=== PATIENT | male | born 1945 | race Caucasian/White ===

== ENCOUNTER 2017-03-24 08:40 | Day surgery (SDC) | payer MEDICARE ==
[2017-03-22 16:20] VITALS: BMI 29.4
[~2017-03-24 08:40] MED LIST: LACTATED RINGERS 1,000 ML IV SCH
[2017-03-24 09:09] VITALS: RESP 18; TEMP 98.5
[2017-03-24] MEDS ORDERED: LIDOCAINE 1% 20 ML VIAL (10MG/ML) FOR IV START INTRADERMA ONE (09:15)
[2017-03-24] MEDS ORDERED: ATROPINE SULFATE 0.4 MG/ML 1 ML VIAL ONE (09:27)
[2017-03-24] MEDS ORDERED: PROPOFOL 10 MG/ML 20 ML VIAL IV ONE (09:27)
[2017-03-24] MEDS ORDERED: GLYCOPYRROLATE 0.2 MG/ML 2 ML VIAL ONE (09:27)
--- NOTE | 2017-03-24 09:28 | P.GSHP ---
History of Present Illness H&P Date: 03/24/17 Chief Complaint: Screening colonoscopy This a 71-year-old male referred from Dr. Perez. Patient presents today for screening colonoscopy. His last colonoscopy was over 10 years ago. He denies a significant GI complaints. Past Medical History Additional Past Medical History / Comment(s): past hx. ulcer, colon polyps History of Any Multi-Drug Resistant Organisms: None Reported Past Surgical History: Orthopedic Surgery Additional Past Surgical History / Comment(s): colonoscopy,EGD, bjorn. arthroscopic shoulder surg. Past Anesthesia/Blood Transfusion Reactions: No Reported Reaction Smoking Status: Former smoker - Past Family History Mother Family Medical History: No Reported History Medications and Allergies Home Medications Medication Instructions Recorded Confirmed Type Acetaminophen Tab [Tylenol Tab] 650 mg PO Q6H PRN 03/22/17 03/24/17 History Potassium Gluconate 1 tab PO DAILY PRN 03/24/17 03/24/17 History Allergies Allergy/AdvReac Type Severity Reaction Status Date / Time No Known Allergies Allergy Verified 03/24/17 09:01 Surgical - Exam Vital Signs Temp Pulse Resp BP Pulse Ox 98.5 F 71 18 146/75 96 03/24/17 09:00 03/24/17 09:00 03/24/17 09:00 03/24/17 09:00 03/24/17 09:00 - General well developed, no distress - Eyes PERRL - ENT normal pinna - Neck no masses - Respiratory normal expansion - Cardiovascular Rhythm: regular - Abdomen Abdomen: soft, non tender Assessment and Plan Plan: We will perform screening colonoscopy.
--- NOTE | 2017-03-24 09:43 | P.OP ---
Date of Procedure: 03/24/17 Preoperative Diagnosis: Screening colonoscopy Postoperative Diagnosis: Left colon polyp Diverticulosis Mild internal hemorrhoids Procedure(s) Performed: Colonoscopy Anesthesia: MAC Surgeon: Dashawn Cancino Pathology: other (Left colon polyp) Condition: stable Disposition: PACU Description of Procedure: Patient's placed on the endoscopy table lateral position. He received IV sedation. Digital rectal exam was performed which revealed internal hemorrhoids. The prostate was symmetric without nodules. The flexible colonoscope was then placed patient anus passed throughout the entire colon. The ileocecal valve sutures. The cecum, ascending and transverse colon appeared normal. The descending colon there was a small polyp was removed the forcep. The sigmoid colon was examined and there was; there is mild diverticular changes. The scope was then brought back the rectum and the internal hemorrhoids are noted. Scope was withdrawn for patient.
[2017-03-24 10:05] VITALS: BP 127/75; PULSE 73
== END 2017-03-24 10:56 | disposition home or self-care (01) ==
LOC: ORWHC2ENDO 08:40
PROVIDERS: ATTEND Surgery
DX: Z12.11 Encounter for screening for malignant neoplasm of colon (principal); K63.5 Polyp of colon; K57.30 Diverticulosis of large intestine without perforation or abscess without bleeding; K64.8 Other hemorrhoids; Z87.891 Personal history of nicotine dependence; Z86.010 Personal history of colon polyps
CPT/HCPCS: 45380; 88305; J0461; J2704

== ENCOUNTER → 2018-08-21 | Outpatient (CLI) | payer MEDICARE ==
--- NOTE | 2018-08-21 13:28 | XR ---
EXAMINATION TYPE: XR chest 2V DATE OF EXAM: 08/21/2018 COMPARISON: Prior chest x-ray 06/22/2013 HISTORY: Shortness of breath for months TECHNIQUE: Frontal and lateral views of the chest are obtained. FINDINGS: There is no focal air space opacity, pleural effusion, or pneumothorax seen. The cardiac silhouette size is within normal limits. The aorta is dense. The osseous structures are intact. IMPRESSION: Stable chest x-ray. No acute cardiopulmonary disease.
== END | disposition home or self-care (01) ==
LOC: RADXRMAIN 12:06
PROVIDERS: ATTEND Family Medicine
DX: R06.02 Shortness of breath (principal)
CPT/HCPCS: 71046

== ENCOUNTER → 2018-09-24 | Outpatient (CLI) | payer MEDICARE ==
[2018-09-24 17:20] LABS: Anisocytosis Slight; HCT 27.4 % (39.0-53.0); HGB 7.6 gm/dL (13.0-17.5); Hypochromasia Marked; MCH 19.6 pg (25.0-35.0); MCHC 27.7 g/dL (31.0-37.0); MCV 70.8 fL (80.0-100.0); Mean Platelet Volume 9.5; Microcytosis Moderate; Platelet Count 272 k/uL (150-450); Poikilocytosis Slight; RBC 3.86 m/uL (4.30-5.90); RDW 16.5 % (11.5-15.5); WBC 6.4 k/uL (3.8-10.6)
[2018-09-24 17:27] LABS: Anion Gap 8 mmol/L; Blood Urea Nitrogen 16 mg/dL (9-20); Carbon Dioxide 23 mmol/L (22-30); Chloride 107 mmol/L (98-107); Potassium 4.6 mmol/L (3.5-5.1); Sodium 138 mmol/L (137-145)
== END ==
LOC: LABPAT 16:08
PROVIDERS: ATTEND Internal Medicine Cardiovascular Disease
DX: Z01.812 Encounter for preprocedural laboratory examination (principal); I34.0 Nonrheumatic mitral (valve) insufficiency
CPT/HCPCS: 36415; 80051; 82565; 84520; 85027

== ENCOUNTER 2018-10-02 12:33 | Emergency (ER) | payer MEDICARE ==
[2018-10-02 12:57] VITALS: RESP 18; TEMP 98.2
[2018-10-02] MEDS ORDERED: PANTOPRAZOLE 40 MG/10 ML VIAL IVP ONE (13:11)
--- NOTE | 2018-10-02 13:20 | ED ---
General Adult HPI - General Chief complaint: Shortness of Breath Stated complaint: Abn labs Time Seen by Provider: 10/02/18 13:05 Source: patient Mode of arrival: ambulatory Limitations: no limitations - History of Present Illness Initial comments: Dictation was produced using [employer] dictation software. please excuse any grammatical, word or spelling errors. Chief Complaint: 73-year-old male past medical history coronary artery disease, peptic ulcer disease presents with low hemoglobin. History of Present Illness:-year-old male. 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 Patient had a cardiac stress test is performed due to the complaint of shortness of breath with exertion. Patient states he had an abnor mal stress test. Patient had outpatient labs performed prior to perform a stress test. His found to have a hemoglobin of 7.6. Patient has known history of peptic ulcer disease. Having black stools intermittently however over the past 4-5 months he has been having more frequent black stools. Patient states that no one takes Prilosec however has not been taking it for usual. Patient still however is also mild shortness of breath is worse with exertion. Denies any pain complaints at this time. The ROS documented in this emergency department record has been reviewed and confirmed by me. Those systems with pertinent positive or negative responses have been documented in the HPI. All other systems are other negative and/or noncontributory. PHYSICAL EXAM: General Impression: Alert and oriented x3, not in acute distress HEENT: Normocephalic atraumatic, extra-ocular movements intact, pupils equal and reactive to light bilaterally, mucous membranes moist. Cardiovascular: Heart regular rate and rhythm, S1&S2 audible, no murmurs, rubs or gallops Chest: Lungs clear to auscultation bilaterally, no rhonchi, no wheeze, no rales Abdomen: Bowel sounds present, abdomen soft, non-tender, non-distended, no organomegaly Musculoskeletal: Pulses present and equal in all extremities, no peripheral edema Motor: no focal deficits noted Neurological: CN II-XII grossly intact, no focal motor or sensory deficits noted Skin: Intact with no visualized rashes Psych: Normal affect and mood ED course: 73-year-old male presents with chief complaint of abnormal outpatient labs. Vital signs upon arrival are within acceptable limits. Patient is otherwise well-appearing. Labs were reviewed from when it was drawn by cardiology showing a hemoglobin of 7.6. Repeat labs were performed today. Patient has a hemoglobin of 8.4. Coag panel unremarkable. Metabolic panel is unremarkable. Stool occult blood is negative. Chest x-ray shows no acute processes. Patient feels well. Patient requested to be discharged. I believe this is a reasonable disposition. Patient given outpatient follow-up with gastroenterology. Patient told to take Prilosec every 12 hours. Return parameters discussed. He is told to return to the emergency department with worsening symptoms. He is instructed to follow-up with primary care physician for repeat labs to be drawn for trending of his hemoglobin. Patient understandable and agreeable to disposition. EKG interpretation: Ventricular rate 71, normal sinus rhythm,. Interval 194, care is 82, QTC 408. No AR prolongation, no QTC prolongation, no ST or T-wave changes noted. No old EKG for comparison.. Overall, this EKG is unremarkable - Related Data Home Medications Medication Instructions Recorded Confirmed Omeprazole Magnesium [PriLOSEC OTC] 20 mg PO DAILY PRN 09/28/18 10/02/18 Ferrous Sulfate [Feosol] 325 mg PO DAILY 10/02/18 10/02/18 Allergies Allergy/AdvReac Type Severity Reaction Status Date / Time No Known Allergies Allergy Verified 10/02/18 13:10 Review of Systems ROS Statement: Those systems with pertinent positive or pertinent negative responses have been documented in the HPI. ROS Other: All systems not noted in ROS Statement are negative. Past Medical History Additional Past Medical History / Comment(s): past hx. ulcer, colon polyps, failed stress test History of Any Multi-Drug Resistant Organisms: None Reported Past Surgical History: Orthopedic Surgery Additional Past Surgical History / Comment(s): colonoscopy,EGD, bjorn. arthroscopic shoulder surg. Past Anesthesia/Blood Transfusion Reactions: No Reported Reaction Past Psychological History: No Psychological Hx Reported Smoking Status: Never smoker Past Alcohol Use History: Rare Past Drug Use History: None Reported - Past Family History Mother Family Medical History: No Reported History General Exam Limitations: no limitations Course Vital Signs 10/02/18 12:51 Temperature 98.2 F Pulse Rate 83 Respiratory 18 Rate Blood Pressure 137/65 O2 Sat by Pulse 100 Oximetry Medical Decision Making - Lab Data Result diagrams: 10/02/18 13:25 10/02/18 13:25 Lab Results 04/10/02/18 10/02/18 Range/Units 13:25 13:25 13:25 WBC 7.1 (3.8-10.6) k/uL RBC 4.32 (4.30-5.90) m/uL Hgb 8.4 L (13.0-17.5) gm/dL Hct 30.7 L (39.0-53.0) % MCV 71.1 L (80.0-100.0) fL MCH 19.5 L (25.0-35.0) pg MCHC 27.4 L (31.0-37.0) g/dL RDW 19.8 H (11.5-15.5) % Plt Count 356 (150-450) k/uL Neutrophils % 63 % Lymphocytes % 26 % Monocytes % 6 % Eosinophils % 2 % Basophils % 1 % Neutrophils # 4.5 (1.3-7.7) k/uL Lymphocytes # 1.8 (1.0-4.8) k/uL Monocytes # 0.4 (0-1.0) k/uL Eosinophils # 0.1 (0-0.7) k/uL Basophils # 0.1 (0-0.2) k/uL Hypochromasia Marked Poikilocytosis Slight Anisocytosis Slight Microcytosis Marked PT (9.0-12.0) sec INR (<1.2) Sodium 139 (137-145) mmol/L Potassium 4.6 (3.5-5.1) mmol/L Chloride 107 (98-107) mmol/L Carbon Dioxide 23 (22-30) mmol/L Anion Gap 9 mmol/L BUN 15 (9-20) mg/dL Creatinine 0.89 (0.66-1.25) mg/dL Est GFR (CKD-EPI)AfAm >90 (>60 ml/min/1.73 sqM) Est GFR (CKD-EPI)NonAf 86 (>60 ml/min/1.73 sqM) Glucose 99 (74-99) mg/dL Calcium 9.6 (8.4-10.2) mg/dL Magnesium 2.0 (1.6-2.3) mg/dL NT-Pro-B Natriuret Pep 267 pg/mL Stool Occult Blood (Negative) 10/02/18 10/02/18 Range/Units 13:25 13:25 WBC (3.8-10.6) k/uL RBC (4.30-5.90) m/uL Hgb (13.0-17.5) gm/dL Hct (39.0-53.0) % MCV (80.0-100.0) fL MCH (25.0-35.0) pg MCHC (31.0-37.0) g/dL RDW (11.5-15.5) % Plt Count (150-450) k/uL Neutrophils % % Lymphocytes % % Monocytes % % Eosinophils % % Basophils % % Neutrophils # (1.3-7.7) k/uL Lymphocytes # (1.0-4.8) k/uL Monocytes # (0-1.0) k/uL Eosinophils # (0-0.7) k/uL Basophils # (0-0.2) k/uL Hypochromasia Poikilocytosis Anisocytosis Microcytosis PT 10.7 (9.0-12.0) sec INR 1.0 (<1.2) Sodium (137-145) mmol/L Potassium (3.5-5.1) mmol/L Chloride (98-107) mmol/L Carbon Dioxide (22-30) mmol/L Anion Gap mmol/L BUN (9-20) mg/dL Creatinine (0.66-1.25) mg/dL Est GFR (CKD-EPI)AfAm (>60 ml/min/1.73 sqM) Est GFR (CKD-EPI)NonAf (>60 ml/min/1.73 sqM) Glucose (74-99) mg/dL Calcium (8.4-10.2) mg/dL Magnesium (1.6-2.3) mg/dL NT-Pro-B Natriuret Pep pg/mL Stool Occult Blood Negative (Negative) Disposition Clinical Impression: Anemia, GI bleed Disposition: HOME SELF-CARE Condition: Fair Instructions (If sedation given, give patient instructions): Gastrointestinal Bleeding (ED) Is patient prescribed a controlled substance at d/c from ED?: No Referrals: Jarred Perez DO [Primary Care Provider] - 1-2 days Ankur Sheehan MD [STAFF PHYSICIAN] - 1-2 days Time of Disposition: 15:15
[2018-10-02 14:00] LABS: Prothrombin Time 10.7 sec (9.0-12.0)
[2018-10-02 14:01] LABS: Anisocytosis Slight; Basophils # (A) 0.1 k/uL (0-0.2); Basophils % (A) 1 %; Eosinophils # (A) 0.1 k/uL (0-0.7); Eosinophils % (A) 2 %; HCT 30.7 % (39.0-53.0); HGB 8.4 gm/dL (13.0-17.5); Hypochromasia Marked; Lymphocytes # (A) 1.8 k/uL (1.0-4.8); Lymphocytes % (A) 26 %; MCH 19.5 pg (25.0-35.0); MCHC 27.4 g/dL (31.0-37.0); MCV 71.1 fL (80.0-100.0); Mean Platelet Volume 7.4; Microcytosis Marked; Monocytes # (A) 0.4 k/uL (0-1.0); Monocytes % (A) 6 %; Neutrophils # (A) 4.5 k/uL (1.3-7.7); Neutrophils % (A) 63 %; Platelet Count 356 k/uL (150-450); Poikilocytosis Slight; RBC 4.32 m/uL (4.30-5.90); RDW 19.8 % (11.5-15.5); WBC 7.1 k/uL (3.8-10.6)
[2018-10-02 14:03] LABS: Anion Gap 9 mmol/L; Blood Urea Nitrogen 15 mg/dL (9-20); Calcium 9.6 mg/dL (8.4-10.2); Carbon Dioxide 23 mmol/L (22-30); Chloride 107 mmol/L (98-107); Glucose 99 mg/dL (74-99); Potassium 4.6 mmol/L (3.5-5.1); Sodium 139 mmol/L (137-145)
--- NOTE | 2018-10-02 14:07 | XR ---
EXAMINATION TYPE: XR chest 2V DATE OF EXAM: 10/02/2018 COMPARISON: Prior chest x-ray 08/21/2018 HISTORY: Abnormal EKG TECHNIQUE: Frontal and lateral views of the chest are obtained. FINDINGS: There are overlying cardiac leads. There is no focal air space opacity, pleural effusion, o r pneumothorax seen. The cardiac silhouette size is within normal limits. The osseous structures a re intact. IMPRESSION: No acute cardiopulmonary process.
[2018-10-02 15:17] VITALS: BP 127/74; PULSE 68
== END 2018-10-02 15:37 | disposition home or self-care (01) ==
LOC: EC 12:33
DX: D64.9 Anemia, unspecified (principal); K92.2 Gastrointestinal hemorrhage, unspecified; R06.02 Shortness of breath; Z86.79 Personal history of other diseases of the circulatory system
CPT/HCPCS: 36415; 93005; 83880; 80048; 83735; 85025; 85610; 82272; 71046; 99285; 96374; C9113

== ENCOUNTER 2018-11-06 09:43 | Day surgery (SDC) | payer MEDICARE ==
[2018-11-02 08:43] VITALS: BMI 29.2
[2018-11-06 10:35] VITALS: RESP 16; TEMP 98.1
[2018-11-06] MEDS ORDERED: PROPOFOL 10 MG/ML 20 ML VIAL IV ONE (11:33)
[2018-11-06] MEDS ORDERED: LIDOCAINE 1% INJ 10MG/ML (20 ML MDV) ONE (11:33)
[2018-11-06] MEDS ORDERED: fentaNYL (PF) 50 MCG/ML 2 ML AMP ONE (11:33)
[2018-11-06 11:35] LABS: Anisocytosis Moderate; Basophils % (A) 1 %; Eosinophils # (A) 0.2 k/uL (0-0.7); Eosinophils % (A) 2 %; HCT 39.9 % (39.0-53.0); HGB 11.6 gm/dL (13.0-17.5); Hypochromasia Marked; Lymphocytes # (A) 1.6 k/uL (1.0-4.8); Lymphocytes % (A) 26 %; MCH 21.5 pg (25.0-35.0); MCHC 29.1 g/dL (31.0-37.0); MCV 73.9 fL (80.0-100.0); Mean Platelet Volume 8.9; Microcytosis Marked; Monocytes # (A) 0.6 k/uL (0-1.0); Monocytes % (A) 9 %; Neutrophils # (A) 3.7 k/uL (1.3-7.7); Neutrophils % (A) 60 %; Platelet Count 286 k/uL (150-450); RDW 20.2 % (11.5-15.5); WBC 6.3 k/uL (3.8-10.6)
--- NOTE | 2018-11-06 11:58 | P.PCN ---
Date of Procedure: 11/06/18 Procedure(s) Performed: Procedure: Esophagogastroduodenoscopy and biopsy. Preoperative diagnosis: Anemia. Postoperative diagnosis: 1. Small hiatal hernia with no obvious esophagitis or complicated reflux disease. 2. Mild gastritis. 3. Multiple biopsies obtained from the duodenum, antrum and esophagus. Preparation and sedation: Was provided by anesthesia. Brief clinical history: The patient is a 73-year-old male who is scheduled for this evaluation because of anemia. He had a prior colonoscopy in 2017. The patient has no abdominal complaints, bleeding or upper GI symptoms. There has history of peptic ulcer disease. Procedure: With the patient on his left lateral decubitus position and after informed consent and adequate sedation, I passed the Olympus-GIF H190 video upper endoscope through cricopharyngeus down the esophagus. GE junction was around 38 cm from the incisors and there was a small sliding hiatal hernia but no evidence of esophagitis or complicated reflux disease. The endoscope was then passed into the stomach which was insufflated with air and inspected in detail including the retroflex view in the cardia. There was some mottling and erythema in the antrum but no ulcers or bleeding. Pyloric channel did not show any ulcers. Duodenal bulb, post bulbar area and descending duodenum were essentially within normal limits. I obtained multiple biopsies from the duodenum, antrum and esophagus then the endoscope was withdrawn. The patient tolerated the procedure well. Plan: The patient was reassured. Will await biopsy results. He will follow up with you as planned. Consideration can be given for a repeat colonoscopy if he continues to have issues with anemia and evidence of GI blood loss.
[2018-11-06 12:14] VITALS: BP 118/66; PULSE 64
== END 2018-11-06 12:33 | disposition home or self-care (01) ==
LOC: ORWHC2ENDO 09:43
DX: K29.50 Unspecified chronic gastritis without bleeding (principal); K44.9 Diaphragmatic hernia without obstruction or gangrene; D64.9 Anemia, unspecified; Z87.11 Personal history of peptic ulcer disease; Z79.899 Other long term (current) drug therapy
CPT/HCPCS: 88305; 85025; 43239; J2001; J3010; J2704

== ENCOUNTER → 2021-02-17 | Outpatient (CLI) | payer MEDICARE ==
--- NOTE | 2021-02-17 22:29 | MR ---
EXAMINATION TYPE: MR knee RT wo con DATE OF EXAM: 02/17/2021 COMPARISON: Right knee x-ray February 02, 2021 HISTORY: Right knee pain, pain behind knee, painful kneecap for years, no injury. TECHNIQUE: Multiplanar, multisequence imaging of the right knee is performed without IV contrast. FINDINGS: MEDIAL MENISCUS: Irregularity with oblique tear central body medial meniscus having extension into th e posterior horn in the deeper aspect. LATERAL MENISCUS: Anterior and posterior horns are intact without tear. CRUCIATE LIGAMENTS: The anterior and posterior cruciate ligaments are intact. Split PCL fibers noted. COLLATERAL LIGAMENTS: The medial collateral ligament and lateral collateral ligament complex are inta ct. Medial collateral ligament shows thickening coronal images 22 and 23 for reference. No abnormal s ignal noted. EXTENSOR MECHANISM: Visualized quadriceps and patellar tendons are intact. EFFUSION: Small suprapatellar joint effusion. POPLITEAL CYST: No popliteal/carnes cyst. TRICOMPARTMENT SPACES: Mild to moderate tricompartment joint space loss without significant spurring CARTILAGE: Mild cartilaginous loss patellofemoral and medial tibiofemoral compartments. BONE MARROW SIGNAL: Heterogeneous increased T2 signal involving the anterior medial aspect of the dis erasmo medial femoral condyle and medial aspect of the medial tibial plateau. OTHER: No additional significant abnormality is appreciated. IMPRESSION: 1. Complex medial meniscal tear involving central body and posterior horn. Adjacent abnormal bone mar row edema noted. Adjacent thickening of the medial collateral ligament suggesting chronic process.
== END | disposition home or self-care (01) ==
LOC: RADMRIMAIN 19:09
PROVIDERS: ATTEND Orthopaedic Surgery
DX: M23.321 Other meniscus derangements, posterior horn of medial meniscus, right knee (principal)

== ENCOUNTER 2021-05-05 08:01 | Day surgery (SDC) | payer MEDICARE ==
[2021-04-30 14:57] VITALS: BMI 29.2
--- NOTE | 2021-05-04 14:56 | HP ---
HISTORY AND PHYSICAL DATE OF SURGERY: 05/05/2021 Yon Rubio is a 76-year-old gentleman seen with progressive right knee pain. We discussed options for treatment. He elected to proceed with right knee arthroscopy. Consent was obtained. PAST MEDICAL HISTORY: Hyperlipidemia, gastroesophageal reflux disease. PAST SURGICAL HISTORY: Shoulder arthroscopy. DAILY MEDICATIONS: Simvastatin, Prilosec. ALLERGIES: NONE. SOCIAL HISTORY: He denies tobacco use. PHYSICAL EVALUATION OF THE RIGHT KNEE: Range of motion is zero to 125. Mild effusion. Tenderness, medial joint line. Positive medial Chantal's. Patellar crepitus. Ligaments stable. Hip rotation without pain. Distal neurovascular exam is intact. Right knee radiographs reveal moderate osteoarthritis. MRI right knee revealed a complex medial meniscal tear. IMPRESSION: 1. Internal derangement of right knee with medial meniscal tear. 2. Right knee osteoarthritis. 3. Hyperlipidemia. 4. Gastroesophageal reflux disease. PLAN: Right knee arthroscopy with partial meniscectomy and debridement. MMODL / IJN: [id number] /
[~2021-05-05 08:01] MED LIST changes: +DEXAMETHASONE SOD PHOSPHATE 4 MG/ML 1 ML VIAL IV ONE; +HYDROmorphone 0.5 MG/0.5 ML SYRINGE IVP PRN; +LIDOCAINE 1% (10MG/ML) FOR IV START INTRADERMA PRN; +MIDAZOLAM 2 MG/2 ML VIAL IV PRN; +ONDANSETRON 4 MG/2 ML VIAL IVP ONE
[2021-05-05] MEDS ORDERED: ePHEDrine 50 MG/ML 1 ML AMP ONE (09:15)
[2021-05-05] MEDS ORDERED: LIDOCAINE 1% INJ 10MG/ML (20 ML MDV) ONE (09:15)
[2021-05-05] MEDS ORDERED: fentaNYL (PF) 50 MCG/ML 2 ML AMP ONE (09:15)
[2021-05-05] MEDS ORDERED: MIDAZOLAM 2 MG/2 ML VIAL ONE (09:15)
[2021-05-05] MEDS ORDERED: KETOROLAC 15 MG/ML 1 ML VIAL ONE (09:15)
[2021-05-05] MEDS ORDERED: PROPOFOL 10 MG/ML 20 ML VIAL IV ONE (09:15)
[2021-05-05] MEDS ORDERED: BUPIVACAINE (PF) 0.25% 30 ML VIAL SQ ONE (09:40)
--- NOTE | 2021-05-05 10:09 | P.OP ---
Date of Procedure: 05/05/21 Preoperative Diagnosis: Internal derangement right knee Postoperative Diagnosis: 1. Tear medial meniscus right knee 2. Reactive synovitis medial, lateral and suprapatellar compartments right Procedure(s) Performed: 1. Arthroscopic partial medial meniscectomy right knee 2. Arthroscopic partial synovectomy medial, lateral and suprapatellar compartments right knee Anesthesia: LEI, local Surgeon: Daryl Denney Estimated Blood Loss (ml): 7 Pathology: none sent Condition: stable Disposition: PACU Indications for Procedure: 76-year-old gentleman seen with progressive right knee pain. After treatment options were discussed, he elected to proceed with arthroscopy. Operative Findings: See description of procedure Description of Procedure: Patient was taken to the operative suite. Patient underwent a general anesthe tic by the department of anesthesia. Patient was given preoperative antibiotics. The right lower extremity was placed in a well-padded arthroscopic leg callahan. The right leg was prepped and draped in the normal sterile orthopedic fashion. A lateral parapatellar and suprapatellar incision was made. Trochars were inserted. Arthroscopy was initiated. Suprapatellar pouch revealed diffuse thick reactive synovitis. The patellofemoral joint appeared to articulate congruently. There was grade 1 chondromalacia with no osteochondral tears present. The scope was guided into the medial gutter. No loose bodies or plica were identified. The scope was then guided into the medial compartment. A medial parapatellar incision was made. Trocar inserted followed by probe. There was a complex tear involving the posterior horn of the medial meniscus extending into the mid body. There were grade 1 chondromalacia changes of medial femoral condyle with no osteochondral tears. There were grade 3/4 chondromalacia changes at the very posterior aspect of the tibial plateau. There was thick reactive synovitis anteriorly. I performed a partial medial meniscectomy getting down to stable meniscal tissue. I performed a partial synovectomy decompressing the thick reactive synovitis anteriorly. The shaver was removed. The residual meniscus was probed and it was found to be stable. There was good decompression of the synovitis. Scope and probe were then guided into the intercondylar notch. Cruciates were identified, probed and found to be stable. The scope and probe were then guided into lateral compartment. Lateral meniscus was probed and found to be stable. There were grade 1 chondromalacia changes lateral compartment with no tears. There was thick reactive synovitis anteriorly. I introduced a motorized shaver and performed a partial synovectomy. The shaver was removed. There was good decompression of synovitis. The scope was in guided back into the suprapatellar compartment. I introduced a motorized shaver into the super patellar compartment. I debrided some piecemeal fragments of meniscus that I encountered. I performed a partial synovectomy decompressing thick reactive synovitis. The shaver was removed. There was good decompression of synovitis. I took one more look around the entire knee, no residual debris. Instruments were now removed from the joint. The joint was infiltrated with .25% Marcaine. Steri-Strips were applied to the portal sites. Sterile dressings were applied. The patient was placed into a BRYAN hose. No tourniquet was utilized. The patient was awakened, transferred to a bed and taken to recovery stable satisfactory condition.
[2021-05-05 10:12] VITALS: TEMP 97
[2021-05-05 10:58] VITALS: BP 160/70; PULSE 69; RESP 16
== END 2021-05-05 11:25 | disposition home or self-care (01) ==
LOC: OR 08:01
PROVIDERS: ATTEND Orthopaedic Surgery
DX: S83.241A Other tear of medial meniscus, current injury, right knee, initial encounter (principal); M65.861 Other synovitis and tenosynovitis, right lower leg; E78.5 Hyperlipidemia, unspecified; K21.9 Gastro-esophageal reflux disease without esophagitis
CPT/HCPCS: 29881; 29876; J2250; J1100; J0690; J2405; J2001; J3010; J1885; J2704

== ENCOUNTER 2022-02-16 19:06 | Emergency (ER) | payer MEDICARE ==
[2022-02-16 19:32] VITALS: TEMP 97.8
--- NOTE | 2022-02-16 20:01 | XR ---
EXAM: XR Right Wrist Complete, 3 or More Views CLINICAL HISTORY: Trauma TECHNIQUE: Frontal, lateral and oblique views of the right wrist. COMPARISON: No relevant prior studies available. FINDINGS: Bones/joints: Degenerative changes are noted involving the radiocarpal joint and the first carpal metacarpal joint. No acute fracture. No dislocation. Soft tissues: No significant overlying soft tissue abnormality identified. No radiopaque foreign body. No subcutaneous emphysema. IMPRESSION: No acute osseous traumatic injury or abnormal alignment involving the right wrist. Incidental degenerative changes.
--- NOTE | 2022-02-16 20:28 | ED ---
General Adult HPI - General Chief complaint: Extremity Injury, Lower Stated complaint: fell head injury, right wrist injury Time Seen by Provider: 02/16/22 19:34 Source: patient, RN notes reviewed, old records reviewed Mode of arrival: ambulatory Limitations: no limitations - History of Present Illness Initial comments: This is a 76-year-old male who presents emergency department after having fallen. Patient states on the way down he hit his head and was dazed. Patient states he has chronic neck pain but his neck hurts and now he has noticed from the fall or if it's from his chronic neck pain. Patient statesconcern is his right wrist is swollen over the radial aspect posteriorly. Patient states it hurts to move and hurts to touch. Patient denies any other injury. Patient denies any numbness weakness. Patient has a chest back pain. Patient denies any lower extremity pain. Has been ambulatory since the accident. - Related Data Home Medications Medication Instructions Recorded Confirmed Omeprazole Magnesium [PriLOSEC OTC] 20 mg PO DAILY 09/28/18 04/30/21 Ferrous Sulfate [Feosol] 325 mg PO DAILY 10/02/18 04/30/21 Rosuvastatin Calcium [Crestor] 5 mg PO HS 04/30/21 04/30/21 Previous Rx's Medication Instructions Recorded HYDROcodone/APAP 5-325MG [[place] 1 tab PO Q6HR PRN #18 tab 05/05/21 5-325] Allergies Allergy/AdvReac Type Severity Reaction Status Date / Time No Known Allergies Allergy Verified 02/16/22 19:32 Review of Systems ROS Statement: Those systems with pertinent positive or pertinent negative responses have been documented in the HPI. ROS Other: All systems not noted in ROS Statement are negative. Past Medical History Additional Past Medical History / Comment(s): past hx. ulcer, colon polyps, failed stress test History of Any Multi-Drug Resistant Organisms: None Reported Past Surgical History: Orthopedic Surgery Additional Past Surgical History / Comment(s): colonoscopy,EGD, bjorn. arthroscopic shoulder surg. Past Anesthesia/Blood Transfusion Reactions: No Reported Reaction Past Psychological History: No Psychological Hx Reported Smoking Status: Never smoker Past Alcohol Use History: Rare Past Drug Use History: None Reported - Past Family History Mother Family Medical History: No Reported History General Exam - General Exam Comments Initial Comments: GENERAL: Patient is well-developed and well-nourished. Patient is nontoxic and well- hydrated and is in mild distress. ENT: Neck is soft and supple. No significant lymphadenopathy is noted. Oropharynx is clear. Moist mucous membranes. Neck has full range of motion without eliciting any pain. EYES: The sclera were anicteric and conjunctiva were pink and moist. Extraocular movements were intact and pupils were equal round and reactive to light. Eyelids were unremarkable. SKIN: Skin is clear with no lesions or rashes and otherwise unremarkable. NEUROLOGIC: Patient is alert and oriented x3. Cranial nerves II through XII are grossly intact. Motor and sensory are also intact. Normal speech, volume and content. Symmetrical smile. MUSCULOSKELETAL: Patient's right wrist is swollen over the scaphoid extremely tender to touch. LYMPHATICS: No significant lymphadenopathy is noted PSYCHIATRIC: Normal psychiatric evaluation. Limitations: no limitations Course Vital Signs 02/16/22 19:29 Temperature 97.8 F Pulse Rate 74 Respiratory 18 Rate Blood Pressure 143/73 O2 Sat by Pulse 97 Oximetry Procedures - Orthopedic Splinting/Casting Injury #1 Side: right Upper Extremity Injury Location: short arm Upper Extremity Immobilizer: thumb spica Medical Decision Making - Medical Decision Making X-ray of the wrist shows no acute abnormality. CT of the brain I put a splint on the wrist secondary to the fact that the pain and swelling or right over the scaphoid. shows no acute abnormality. CT C-spine shows no acute normalities. Disposition Clinical Impression: Occult fracture of scaphoid, Head injury Disposition: HOME SELF-CARE Condition: Good Instructions (If sedation given, give patient instructions): Scaphoid Fracture (ED), Head Injury (ED) Is patient prescribed a controlled substance at d/c from ED?: No Referrals: Daryl Denney DO [Doctor of Osteopathic Medicine] - 1-2 days Time of Disposition: 20:27
--- NOTE | 2022-02-16 20:44 | CT ---
EXAM: CT Head Without Intravenous Contrast CLINICAL HISTORY: Trauma TECHNIQUE: Axial computed tomography images of the head/brain without intravenous contrast. CTDI is 45.2 mGy and DLP is 1059 mGy-cm. This CT exam was performed using one or more of the following dose reduction techniques: automated exposure control, adjustment of the mA and/or kV according to patient size, and/or use of iterative reconstruction technique. COMPARISON: No relevant prior studies available. FINDINGS: Brain: No intracranial hemorrhage. No significant mass effect. No evidence for cortical infarct. Mild prominence of the cerebral sulci and sylvian fissures. No significant white matter disease. Ventricles: Unremarkable. No ventriculomegaly. Bones/joints: Unremarkable. No acute fracture. Soft tissues: No significant overlying acute traumatic soft tissue abnormality. No radiopaque foreign body. Sinuses: Unremarkable as visualized. No acute sinusitis. Mastoid air cells: Unremarkable as visualized. No mastoid effusion. IMPRESSION: No acute intracranial process identified. EXAM: CT Cervical Spine Without Intravenous Contrast CLINICAL HISTORY: Trauma TECHNIQUE: Axial computed tomography images of the cervical spine without intravenous contrast. CTDI is 15 mGy and DLP is 396.3 mGy-cm. This CT exam was performed using one or more of the following dose reduction techniques: automated exposure control, adjustment of the mA and/or kV according to patient size, and/or use of iterative reconstruction technique. COMPARISON: No relevant prior studies available. FINDINGS: Vertebrae: The vertebral bodies are intact without acute osseous traumatic injury. No anterolisthesis or retrolisthesis is identified. The facet joints are well aligned without subluxation or dislocation. The pedicles, transverse processes and spinous processes are intact. Facet hypertrophic changes are noted at several levels. Discs/spinal canal/neural foramina: Disc space narrowing with marginal hypertrophic changes are most notable at C5-6 and C6-7. No significant osseous central canal stenosis identified. Soft tissues: Unremarkable. Lung apices: The included lung apices demonstrate no evidence for significant acute traumatic injury. IMPRESSION: No acute osseous traumatic injury or significant abnormal alignment involving the cervical spine. Incidental chronic appearing multilevel degenerative changes noted.
[2022-02-16 21:04] VITALS: BP 122/65; PULSE 52; RESP 16
== END 2022-02-16 21:03 | disposition home or self-care (01) ==
LOC: EC 19:06
DX: S62.001A Unspecified fracture of navicular [scaphoid] bone of right wrist, initial encounter for closed fracture (principal); S09.90XA Unspecified injury of head, initial encounter; W22.8XXA Striking against or struck by other objects, initial encounter
CPT/HCPCS: 29125; 70450; 72125; 99284